=== PATIENT | male | born 1975 | race Caucasian/White ===

== ENCOUNTER 2021-01-24 15:37 | Inpatient (IN) | payer OTHER ==
[2021-01-24 17:32] VITALS: BMI 25.9
[2021-01-24] MEDS ORDERED: BISMUTH SUBSALICYLATE 524 MG/30 ML PO PRN (18:14)
[2021-01-24] MEDS ORDERED: MAGNESIUM CITRATE 300 ML BOTTLE PO PRN (18:14)
[2021-01-24] MEDS ORDERED: MENTHOL/PHENOL 1 EACH UD MM PRN (18:14)
[2021-01-24] MEDS ORDERED: ONDANSETRON *ODT* 4 MG TABLET SL PRN (18:14)
[2021-01-24] MEDS ORDERED: MAG HYDROX/AL HYDROX/SIMETH 30 ML UNIT-DOSE CUP PO PRN (18:14)
[2021-01-24] MEDS ORDERED: ACETAMINOPHEN 325 MG TABLET (FP) PO PRN (18:14)
[2021-01-24] MEDS ORDERED: MAGNESIUM HYDROX 2400MG/30ML ORAL SUSPENSION 30 ML CUP PO PRN (18:14)
[2021-01-24] MEDS: MELATONIN 5 MG TABLETS PO SCH (23:19)
[2021-01-24] MEDS: THIAMINE HCL 100 MG TABLET (FP) PO SCH (23:19)
[2021-01-24] MEDS: METHOCARBAMOL 500 MG TABLET PO PRN (23:20)
[2021-01-25] MEDS: NICOTINE 14 MG/24 HOURS TOPICAL PATCH TD SCH (10:07)
[2021-01-25] MEDS: PRENATAL VITAMINS W/ FOLIC ACID TABLET (FP) PO SCH (10:07)
[2021-01-25] MEDS ORDERED: amLODIPine BESYLATE 10 MG TABLET (FP) PO ONE (11:15)
[2021-01-25] MEDS ORDERED: LORazepam 1 MG TABLET PO PRN (11:35)
[2021-01-25] MEDS ORDERED: LORazepam 1 MG TABLET PO ONE (12:15)
[2021-01-25 12:18] LABS: HEMATOCRIT 42.3 % (35.4-49); HEMOGLOBIN 14.7 GM/dL (11.7-16.9); MCH 31.9 pg (25.7-33.7); MCHC 34.8 g/dl (32.0-35.9); MEAN CELL VOLUME 91.5 fl (80-96); MEAN PLT VOLUME 7.9 fl (7.5-11.1); PLATELET COUNT 183 10^3/uL (134-434); RBC 4.62 M/mm3 (4.00-5.60); RDW 13.3 % (11.9-15.9); WHITE BLOOD COUNT 6.2 K/mm3 (4.0-10.0)
[2021-01-25 12:24] LABS: CALCIUM 9.1 mg/dL (8.5-10.1)
[2021-01-25 12:25] LABS: ALBUMIN 3.8 g/dl (3.4-5.0); BLOOD UREA NITROGEN 9.3 mg/dL (7-18)
[2021-01-25 12:28] LABS: CREATININE 0.9 mg/dL (0.55-1.3)
[2021-01-25 12:29] LABS: BILIRUBIN,TOTAL 3.9 mg/dL (0.2-1)
[2021-01-25] MEDS: LORazepam 2 MG TABLET PO SCH ×2 (17:22→22:22)
[2021-01-25] MEDS: MELATONIN 5 MG TABLETS PO SCH (22:23)
[2021-01-25] MEDS: THIAMINE HCL 100 MG TABLET (FP) PO SCH (22:24)
[2021-01-25] MEDS: VITAMINS A AND D TOPICAL OINTMENT 60 GM TUBE TP SCH (22:24)
[2021-01-26] MEDS: LORazepam 2 MG TABLET PO SCH ×4 (05:24→22:17)
[2021-01-26] MEDS: amLODIPine BESYLATE 10 MG TABLET (FP) PO SCH (11:00)
[2021-01-26] MEDS: NICOTINE 14 MG/24 HOURS TOPICAL PATCH TD SCH (11:00)
[2021-01-26] MEDS: PRENATAL VITAMINS W/ FOLIC ACID TABLET (FP) PO SCH (11:00)
[2021-01-26] MEDS: VITAMINS A AND D TOPICAL OINTMENT 60 GM TUBE TP SCH ×2 (11:00→22:45)
[2021-01-26] MEDS: NICOTINE 10 MG CARTRIDGE (INHALER) IH PRN (17:22)
[2021-01-26] MEDS: THIAMINE HCL 100 MG TABLET (FP) PO SCH (22:16)
[2021-01-26] MEDS: MELATONIN 5 MG TABLETS PO SCH (22:16)
[2021-01-27] MEDS: LORazepam 1 MG TABLET PO SCH ×4 (05:40→22:39)
[2021-01-27] MEDS: ACETAMINOPHEN 325 MG TABLET (FP) PO PRN (05:41)
[2021-01-27] MEDS: NICOTINE 14 MG/24 HOURS TOPICAL PATCH TD SCH (10:35)
[2021-01-27] MEDS: NICOTINE 10 MG CARTRIDGE (INHALER) IH PRN ×2 (10:35→22:42)
[2021-01-27] MEDS: amLODIPine BESYLATE 10 MG TABLET (FP) PO SCH (10:38)
[2021-01-27] MEDS: VITAMINS A AND D TOPICAL OINTMENT 60 GM TUBE TP SCH ×2 (10:39→22:51)
[2021-01-27] MEDS: PRENATAL VITAMINS W/ FOLIC ACID TABLET (FP) PO SCH (10:39)
[2021-01-27 11:59] LABS: INR 0.9 (0.83-1.09); PROTHROMBIN TIME (PATIENT) 10.5 SEC (9.7-13.0)
[2021-01-27 12:06] LABS: CALCIUM 9.1 mg/dL (8.5-10.1)
[2021-01-27 12:08] LABS: ALBUMIN 3.4 g/dl (3.4-5.0); BLOOD UREA NITROGEN 15.4 mg/dL (7-18)
[2021-01-27 12:11] LABS: CREATININE 0.7 mg/dL (0.55-1.3)
[2021-01-27 12:12] LABS: TOT PROT 6.5 g/dl (6.4-8.2)
[2021-01-27 12:15] LABS: BILIRUBIN,TOTAL 0.8 mg/dL (0.2-1)
[2021-01-27] MEDS: MELATONIN 5 MG TABLETS PO SCH (22:39)
[2021-01-27] MEDS: THIAMINE HCL 100 MG TABLET (FP) PO SCH (22:39)
[2021-01-27] MEDS: METHOCARBAMOL 500 MG TABLET PO PRN (22:41)
[2021-01-28] MEDS ORDERED: LORazepam 0.5 MG TABLET PO PRN
[2021-01-28] MEDS: LORazepam 0.5 MG TABLET PO SCH ×4 (06:12→22:19)
[2021-01-28] MEDS: ACETAMINOPHEN 325 MG TABLET (FP) PO PRN (06:13)
[2021-01-28] MEDS ORDERED: POTASSIUM CHLORIDE ORAL LIQUID 20 MEQ/15 ML PO SCH (10:00)
[2021-01-28] MEDS: PRENATAL VITAMINS W/ FOLIC ACID TABLET (FP) PO SCH (10:49)
[2021-01-28] MEDS: amLODIPine BESYLATE 10 MG TABLET (FP) PO SCH (10:49)
[2021-01-28] MEDS: IBUPROFEN 400 MG TABLET (FP) PO PRN ×2 (10:50→22:21)
[2021-01-28] MEDS: NICOTINE 14 MG/24 HOURS TOPICAL PATCH TD SCH (10:52)
[2021-01-28] MEDS: VITAMINS A AND D TOPICAL OINTMENT 60 GM TUBE TP SCH ×2 (10:52→22:23)
[2021-01-28] MEDS: COLCHICINE 0.6 MG TAB PO SCH (14:13)
[2021-01-28] MEDS: NICOTINE 10 MG CARTRIDGE (INHALER) IH PRN ×2 (17:20→22:39)
[2021-01-28] MEDS: THIAMINE HCL 100 MG TABLET (FP) PO SCH (22:20)
[2021-01-28] MEDS: MELATONIN 5 MG TABLETS PO SCH (22:20)
[2021-01-29] MEDS ORDERED: LORazepam 0.5 MG TABLET PO ONE (05:00)
[2021-01-29] MEDS: METHOCARBAMOL 500 MG TABLET PO PRN (05:37)
[2021-01-29 09:55] VITALS: BP 119/83; PULSE 79; TEMP 97.3
[2021-01-29] MEDS: NICOTINE 14 MG/24 HOURS TOPICAL PATCH TD SCH (10:59)
[2021-01-29] MEDS: amLODIPine BESYLATE 10 MG TABLET (FP) PO SCH (11:00)
[2021-01-29] MEDS: COLCHICINE 0.6 MG TAB PO SCH (11:00)
[2021-01-29] MEDS: VITAMINS A AND D TOPICAL OINTMENT 60 GM TUBE TP SCH (11:01)
[2021-01-29] MEDS: PRENATAL VITAMINS W/ FOLIC ACID TABLET (FP) PO SCH (11:01)
[2021-01-29] MEDS: IBUPROFEN 400 MG TABLET (FP) PO PRN (11:02)
== END 2021-01-29 11:20 | disposition home or self-care (01) | DRG 775 ==
LOC: YASAS 15:37 → UNDOADMIN 19:14 → Y3N 19:14
PROVIDERS: ADMIT Allergy & Immunology; ATTEND Allergy & Immunology
PROC: HZ2ZZZZ Detoxification Services for Substance Abuse Treatment (ICD-10-PCS; principal; 2021-01-24)
DX: F10.230 Alcohol dependence with withdrawal, uncomplicated (principal); F16.20 Hallucinogen dependence, uncomplicated; F12.20 Cannabis dependence, uncomplicated; F17.210 Nicotine dependence, cigarettes, uncomplicated; I10 Essential (primary) hypertension; M10.9 Gout, unspecified; Z56.0 Unemployment, unspecified; Z59.00 Homelessness unspecified
CPT/HCPCS: 36415; 80053; 82947; 84132; 85027; 85610; 86780; 93005; 93010; C9803; U0003; U0005